=== PATIENT | female | born 1950 | race Caucasian/White ===

== ENCOUNTER → 2019-01-12 | Outpatient (CLI) | payer OTHER | LOC: BHFA 13:30 | PROVIDERS: ATTEND Internal Medicine Cardiovascular Disease | DX: R07.9 Chest pain, unspecified (principal); I25.10 Atherosclerotic heart disease of native coronary artery without angina pectoris | CPT/HCPCS: 78452; 93017; A9500 ==

== ENCOUNTER → 2019-02-07 | Day surgery (SDC) | payer OTHER ==
[~2019-02-07] MED LIST: ASPIRIN 81 MG CHEWABLE TAB PO SCH; ASPIRIN EC 325 MG TAB PO ONE; ATROPINE SULFATE 1 MG/10 ML SYR IVP PRN; DIAZEPAM 5 MG TAB ONE; DIAZEPAM 5 MG TAB PO ONE; EPINEPHrine 1 MG/10 ML SYR IVP ONE; FAMOTIDINE 20 MG/NACL 50 ML IV ONE; FAMOTIDINE 20 MG/NACL/50 ML BAG IV ONE; FLUoxetine 20 MG CAP PO SCH; HEPARIN 10,000 UNIT/10 ML MDV (1,000 UNIT/ML) ONE; IOPAMIDOL (ISOVUE-370) 150 ML BTL IV ONE; LEVOTHYROXINE 75 MCG TAB PO SCH; LIDOCAINE 1% 300 MG/30 ML SDV ONE; METOPROLOL TARTRATE 5 MG/5 ML INJ ONE; MIDAZOLAM 2 MG/2 ML VIAL ONE; NITROGLYCERIN 0.4 MG BTL SL ONE; NITROGLYCERIN 0.4 MG BTL SL PRN; NS 1,000 ML IV ONE; ONDANSETRON 4 MG/2 ML VIAL IVP PRN; VERAPAMIL 5 MG/2 ML VIAL ONE; buPROPion XL 150 MG TAB PO SCH; fentaNYL 100 MCG/2 ML INJ ONE; methylPREDNISolone SOD SUCC 125 MG/2 ML VIAL IVP ONE; methylPREDNISolone SOD SUCC 125 MG/2 ML VIAL ONE
[2019-02-07 11:38] LABS: PLATELET COUNT 191 10^3/uL (150-400)
[2019-02-07 11:50] LABS: INR 1.04 (0.83-1.16); PROTIME(PATIENT) 13.2 SEC (12.0-15.0)
--- NOTE | 2019-02-07 14:47 | PDPROPOC ---
Sedation Plan of Care Sedation Plan of Care: vital signs stable, mental status noted, patient educated of risks, benefits, alternatives, patient can tolerate sedation ASA Classification: ASA 2 Planned drugs: fentanyl, midazolam Mallampati Score: Class 2 Mallampati Reference Image: Patient passed 3-3-2 rule?: Yes
--- NOTE | 2019-02-07 14:47 | PDHPUP ---
History & Physical Update H&P update statement: This history and physical update is based on an assessment of the patient which was completed after admission or registration (within 24 hours), but prior to the surgery/procedure. H&P update: H&P reviewed & patient examined, no change in patient's condition since H&P completed
--- NOTE | 2019-02-07 14:53 | PDDXCAT ---
Diagnostic Cath Note - . Date: 02/07/19 Indication: CCC Class III and IV angina on medical treatment - Procedure Access: right wrist Procedure: left heart catheterization, coronary angiography, left ventriculogram - Materials Left Heart Cath size: 5F Left Heart Cath materials: JL3.5, JR4.0, pigtail - Findings-Left Heart Catheterization LM: The left main is 7mm in size. The vessel trifurcates into an LAD, Ramus and Circumflex system. LAD: The left anterior descending is 3mm in size. The vessel gives rise to two important diagonal branches. There are luminal irregularities consistent with atherosclerosis. Maximal luminal stenosis proximal to the birfurcation of the first diagonal is 20%. There is DAMION III flow. LCX: The left circumflex is 3mm in size. There are luminal irregularities consistent with atherosclerosis. Maximal luminal stenosis in the proximal segment of the vessel is 30%. There is DAMION III flow. RCA: The right coronary artery is 3mm in size and dominant. The vessel gives rise to PDA and PLV branches. There is DAMION III flow throughout. Ramus: The Ramus is 2.225mm in size. EDP: 26mmHg LVEF: 75% Wall motion: On the LV gram there is normal LV systolic function. The EF is 76% . There are no resting segmental wall motion abnormalities. 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 There is no gradient on pullback across the aortic valve. There is no evidence of nisreen dissection or aneurysm formation of the thoracic aorta. - Findings-Right Heart Catheterization AO: 123/100/111 Complications: NONE Estimated blood loss: <50ml Closure method: TR Band Assessment: The patient has red cliff vessel coronary disease which is non flow limiting. The right coronary system is dominant. There are luminal irregularities in the LAD proximal to the first diagonal of 20% and stenoisis in the proximal segment of the circumflex measuring approximately 30%. The patient was tachycardic throughout the procedure. The LVEDP was elevated at 26mmHg. Plan: The patient has non flow limiting coronary disease and should be placed on a secondary prevention method to reduce the progression of plaque formation and to achieve a N-HDL below 100mg/dL. Intervention: NONE
--- NOTE | 2019-02-08 10:26 | CPEKG ---
Test Reason : OPEN Blood Pressure : / mmHG Vent. Rate : 090 BPM Atrial Rate : 090 BPM P-R Int : 132 ms QRS Dur : 103 ms QT Int : 376 ms P-R-T Axes : 049 025 052 degrees QTc Int : 460 ms Sinus rhythm baseline artifact Confirmed by Jv Taylor ([id number]) on 02/08/2019 10:26:06 AM Referred By: Eduard Hernández Confirmed By:Jv Taylor
== END | disposition home or self-care (01) ==
LOC: FCATH 10:42
PROVIDERS: ATTEND Internal Medicine Cardiovascular Disease
PROC: B2111ZZ Fluoroscopy of Multiple Coronary Arteries using Low Osmolar Contrast (ICD-10-PCS; principal; 2019-02-07)
PROC: 4A023N8 Measurement of Cardiac Sampling and Pressure, Bilateral, Percutaneous Approach (ICD-10-PCS; principal; 2019-02-07)
PROC: B2151ZZ Fluoroscopy of Left Heart using Low Osmolar Contrast (ICD-10-PCS; principal; 2019-02-07)
DX: I25.119 Atherosclerotic heart disease of native coronary artery with unspecified angina pectoris (principal); M85.819 Other specified disorders of bone density and structure, unspecified shoulder
CPT/HCPCS: J1200; J1644; J2250; J2930; J3010; Q9967